=== PATIENT | male | born 1960 | race Caucasian/White ===

== ENCOUNTER 2023-10-11 12:52 | Emergency (ER) | payer BC ==
[2023-10-11 13:29] LABS: BASOPHILS ABSOLUTE AUTO 0.06 K/uL (0.02-0.10); BASOPHILS PERCENT AUTO 0.7 % (0.0-0.5); EOSINOPHILS ABSOLUTE AUTO 0.11 K/uL (0.04-0.40); EOSINOPHILS PERCENT AUTO 1.3 % (1.0-5.0); HEMATOCRIT 39.3 % (40.0-54.0); HEMOGLOBIN 14.4 g/dL (13.0-18.0); LYMPHOCYTES ABSOLUTE AUTO 1.36 K/uL (1.50-4.00); LYMPHOCYTES PERCENT AUTO 15.9 % (20.0-40.0); MEAN CORPUSCULAR HEMOGLOBIN 32.1 pg (27.0-32.0); MEAN CORPUSCULAR HGB CONC 36.6 g/dL (31.0-35.0); MEAN CORPUSCULAR VOLUME 88 fL (76-96); MEAN PLATELET VOLUME 9.6 fL (6.0-10.0); MONOCYTES ABSOLUTE AUTO 0.54 K/uL (0.20-0.80); MONOCYTES PERCENT AUTO 6.3 % (3.0-10.0); NEUTROPHILS ABSOLUTE AUTO 6.47 K/uL (2.00-7.50); NEUTROPHILS PERCENT AUTO 75.8 % (45.0-70.0); PLATELET COUNT,PLT 277 K/uL (150-400); RED BLOOD CELL COUNT 4.49 M/uL (4.50-6.50); WHITE BLOOD CELL COUNT,WBC 8.5 K/uL (4.0-11.0)
[2023-10-11 13:54] LABS: ALBUMIN 3.5 g/dL (3.4-5.0); ANION GAP 12.1 mmol/L (5.0-15.0); BILIRUBIN TOTAL 0.5 mg/dL (0.0-1.0); BUN/CREATININE RATIO 11.5 (6-25); CALCIUM 8.3 mg/dL (8.5-10.1); CARBON DIOXIDE,CO2 28.6 mmol/L (21.0-32.0); CREATININE 1.04 mg/dL (0.70-1.30); EST CRCL DRUG DOSING (CG) 78.44 mL/min; POTASSIUM,K 4.7 mmol/L (3.5-5.1)
[2023-10-11 13:57] LABS: PTT,PARTIAL THROMBOPLSTIN TIME 22.8 SECONDS (24.4-33.2)
[2023-10-11 13:58] LABS: MAGNESIUM 1.4 mg/dL (1.8-2.4); TROPONIN I HIGH SENSITIVITY 5.7 pg/ml (<=60.4)
[2023-10-11 14:01] LABS: PROTHROMBIN TIME 10.3 sec (9.0-11.5)
[2023-10-11] MEDS: Sodium Chloride 0.9% 1,000 ML IV ONE (14:32)
[2023-10-11] MEDS: Magnesium Sulfate/Water 2 GM in Premix Bag 1 BAG IV ONE (14:34)
[2023-10-11] MEDS: Nicotine 21 MG/24 Hr Patch TRDERM ONE (14:37)
[2023-10-11] MEDS: Magnesium Sulfate/Water 50 ML ONE (18:05)
== END 2023-10-11 17:30 | disposition home or self-care (01) ==
LOC: LB.ED 12:52
DX: R07.89 Other chest pain (principal); I10 Essential (primary) hypertension; E78.00 Pure hypercholesterolemia, unspecified; E11.9 Type 2 diabetes mellitus without complications; F17.210 Nicotine dependence, cigarettes, uncomplicated; Z79.84 Long term (current) use of oral hypoglycemic drugs; Z79.899 Other long term (current) drug therapy
CPT/HCPCS: 36415; 71045; 71250; 80053; 83735; 84484; 85025; 85610; 85730; 93005; 93010; 96365; 96366; 99283; 99285-25; A9270-GY; J3475; J7030